=== PATIENT | male | born 1970 | race Caucasian/White ===

== ENCOUNTER 2018-10-30 21:30 | Inpatient (IN) ==
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
[2018-10-30] MEDS ORDERED: Acetaminophen 325 MG Tablet PO PRN (22:28)
[2018-10-30] MEDS ORDERED: Naloxone Inj 0.4 MG/ML Vial IV.PUSH PRN (22:28)
[2018-10-30] MEDS ORDERED: Bisacodyl 10 MG Supp RECTAL PRN (22:28)
[2018-10-31] MEDS: Morphine Inj 4 MG/ML Vial IV.PUSH PRN ×5 (00:11→23:25)
[2018-10-31] MEDS: Sod Chloride 0.9% Inj 1,000 ML IV.CONT SCH ×3 (02:30→20:05)
[2018-10-31] MEDS ORDERED: Chlorhexidine Gluconate 2% 1 Pack (2 Cloths) TOPICAL ONE (03:51)
[2018-10-31] MEDS ORDERED: Sodium Chlor 0.9% Inj 500 ML IV.SIG SCH (04:00)
[2018-10-31 06:06] LABS: INR 1.1 Ratio; Prothrombin Time 10.7 sec (9.8-11.6)
[2018-10-31 06:09] LABS: Baso % (Auto) 0.2 % (0.0-2.0); Eos % (Auto) 0.4 % (0.0-4.0); Hematocrit 42.7 % (39.0-51.0); Hemoglobin 14.8 gm/dL (13.0-17.0); Lymph # (Auto) 0.9 th/mm3 (1.0-4.8); Lymph % (Auto) 10.3 % (9.0-44.0); Mean Corpuscular HGB Conc 34.7 % (32.0-36.0); Mean Corpuscular Hemoglobin 30.7 pg (27.0-34.0); Mean Corpuscular Volume 88.5 fL (80.0-100.0); Mean Platelet Volume 9.5 fL (7.0-11.0); Mono # (Auto) 0.3 th/mm3 (0.0-0.9); Mono % (Auto) 3.4 % (0.0-8.0); Neut # (Auto) 7.8 th/mm3 (1.8-7.7); Neut % (Auto) 85.7 % (16.0-70.0); Platelet Count 149 th/mm3 (150-450); Red Blood Count 4.83 mil/mm3 (4.50-5.90); Red Cell Distribution Width 12.9 % (11.6-17.2); White Blood Count 9.2 th/mm3 (4.0-11.0)
[2018-10-31 06:26] LABS: Anion Gap 7 meq/L (5-15); Blood Urea Nitrogen 14 mg/dL (7-18); Calcium 8.3 mg/dL (8.5-10.1); Carbon Dioxide 25.5 meq/L (21.0-32.0); Chloride 109 meq/L (98-107); Glomerular Filtration Rate Greater Than 89 mL/min (>89); Glucose,Random 107 mg/dL (74-106); Potassium 3.8 meq/L (3.5-5.1); Sodium 141 meq/L (136-145)
[2018-10-31] MEDS ORDERED: Lidocaine PF 1% Inj 5 ML Syringe OTHER ONE (07:40)
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
[2018-10-31] MEDS ORDERED: ceFAZolin 1 GM Premix Inj 1 GM/50 ML PIGGYBACK IV.SIG ONE (17:15)
[2018-10-31] MEDS ORDERED: Chlorhexidine Gluconate 0.12% Liq 15 ML UDC ONE (17:15)
[2018-10-31] MEDS ORDERED: Lidocaine 2%/Epinephrine 1:200,000 PF Inj 20 ML Vial ONE (17:17)
[2018-10-31] MEDS ORDERED: Sugammadex Inj 200 MG/2 ML Vial IV.PUSH ONE (18:54)
[2018-10-31] MEDS ORDERED: fentaNYL Citrate Inj 100 MCG/2 ML Ampul ONE ×2 (19:21→19:51)
[2018-10-31] MEDS ORDERED: *Meperidine Inj 25 MG/ML Vial PERIprocedural Use ONLY ONE (19:40)
--- NOTE | 2018-10-31 19:48 | P.OP ---
- Preoperative Diagnosis (1) Fracture of left side of mandible Date of procedure: 10/31/18 Procedure: orif left mandible parasymphysis facture exam under anesthesia Anesthesia: GETA, local (2%lidocaine with 1:200,000 epi 10cc) Surgeon: César Connell DMD [employer] Supervisor: Evens Don Estimated blood loss (mL): 20
[2018-10-31] MEDS ORDERED: MethylPREDNISolone Sod Succinate Inj 125 MG/2 ML Vial ONE (20:00)
[2018-10-31] MEDS: MethylPREDNISolone Sod Succinate Inj 125 MG/2 ML Vial IV.PUSH SCH ×2 (20:22→23:25)
[2018-10-31] MEDS: ceFAZolin 1 GM Premix Inj 1 GM/50 ML PIGGYBACK IV.SIG SCH (23:30)
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
[2018-11-01] MEDS: Acetaminophen-HYDROcodone 325/7.5 Liq 15 ML UDC PO PRN ×2 (00:41→07:17)
[2018-11-01] MEDS: Morphine Inj 4 MG/ML Vial IV.PUSH PRN (03:21)
[2018-11-01] MEDS: ceFAZolin 1 GM Premix Inj 1 GM/50 ML PIGGYBACK IV.SIG SCH (05:21)
[2018-11-01] MEDS: Sod Chloride 0.9% Inj 1,000 ML IV.CONT SCH (05:41)
[2018-11-01] MEDS: MethylPREDNISolone Sod Succinate Inj 125 MG/2 ML Vial IV.PUSH SCH (06:24)
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
[2018-11-01 08:35] VITALS: BP 123/78; PULSE 77; RESP 18; TEMP 97.7; O2SAT 96
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
== END 2018-11-01 12:00 | disposition home or self-care (01) ==
LOC: N06 21:30
PROVIDERS: ADMIT Internal Medicine; ATTEND Internal Medicine
PROC: ORIFMAN (2018-10-31 17:40)
DX: S02.66XA Fracture of symphysis of mandible, initial encounter for closed fracture; G25.0 Essential tremor; F12.90 Cannabis use, unspecified, uncomplicated; Y04.0XXA Assault by unarmed brawl or fight, initial encounter; F17.210 Nicotine dependence, cigarettes, uncomplicated